=== PATIENT | female | born 1940 | race Caucasian/White ===

== ENCOUNTER 2021-01-28 12:29 | Emergency (ER) | payer MEDICARE, SELFPAY ==
--- NOTE | 2021-01-28 12:30 | RAD_ITS ---
STUDY: X-RAY CHEST REASON FOR EXAM: Female, 80 years old. SYNCOPE TECHNIQUE: Single AP portable view of the chest. COMPARISON: None. FINDINGS: EKG electrodes are seen. The lungs are clear and expanded. There is no demonstrated pleural abnormality. There is calcification of the mitral valve annulus. Normal mediastinum and carlos. Normal visualized pulmonary arteries. There is atherosclerotic calcification of the aortic arch with tortuosity. There are diffuse degenerative changes of the visualized thoracic spine. Normal visualized ribs, clavicles, and shoulders. There is no demonstrated abnormality of the visualized soft tissue structures of the upper abdomen. RAD/Chest 1 View (Portable) IMPRESSION: No acute abnormality is seen. Electronically Signed: Rafy Garcia MD at 13:32 EDT , Service support ,
--- NOTE | 2021-01-28 12:30 | CT_ITS ---
STUDY: CT BRAIN WITHOUT CONTRAST REASON FOR EXAM: Unknown, 80 years old. ALT LOC RADIATION DOSAGE (If Supplied By Facility): CTDIvol = ( 44.99 ) mGy, DLP = ( 829.85 ) mGycm TECHNIQUE: Transaxial CT imaging of the brain was performed without administration of intravenous contrast material. Individualized dose optimization techniques were used for this CT. COMPARISON: No relevant priors. FINDINGS: Normal soft tissue structures. Normal calvarium. There is mild cerebral atrophy with widening of the extra-axial spaces and ventricular dilatation. Normal white matter tracts of the cerebral hemispheres. Normal basal ganglia and thalami. Normal brainstem. Normal cerebellum. There is no intracranial hemorrhage. There are no findings of an acute ischemic infarction. Atherosclerotic calcification of the cavernous portions of the internal carotid arteries bilaterally. Normal visualized paranasal sinuses. CT/Brain/Head without Contrast IMPRESSION: Chronic involutional changes of the brain. Electronically Signed: Rafy Garcia MD at 13:08 EDT , Service support ,
--- NOTE | 2021-01-28 12:30 | CT_ITS ---
STUDY: CT CERVICAL SPINE WITHOUT CONTRAST REASON FOR EXAM: Unknown, 80 years old. TRAUMA RADIATION DOSAGE (If Supplied By Facility): CTDIvol = ( 21.56 ) mGy, DLP = ( 435.45 ) mGycm TECHNIQUE: High resolution transaxial imaging was performed without contrast material. Sagittal and coronal images were reconstructed. Limited examination due to the patient''s movement. Individualized dose optimization techniques were used for this CT. COMPARISON: None FINDINGS: Normal craniovertebral junction. There are degenerative changes of the anterior atlantoaxial articulation. Normal odontoid process. There is straightening of the normal cervical lordosis. Normal vertebral bodies and posterior osseous elements. C2-3: Normal endplates. Normal disc height and morphology. Normal central canal and intervertebral neuroforamina. C3-4: Marked degree of disc space narrowing and subchondral sclerosis. Uncovertebral arthrosis. Bilateral neural foraminal stenosis worse on the left side. Mild hypertrophy of the facet joints. C4-5: Mild degree of disc space narrowing. There is a 6.6 cm well-defined lucency in the posterior lateral aspect of the C5 vertebra. C5-6: Marked degree of disc space narrowing. Uncovertebral arthrosis and spondylosis with a moderate degree of bilateral neural foraminal stenosis worse on the right side. C6-7: Marked degree of disc space narrowing. Spondylosis. Uncovertebral arthrosis. Bilateral neural foraminal stenosis. C7-T1: Normal endplates. Normal disc height and morphology. Normal central canal and intervertebral neuroforamina. Atherosclerotic plaque formation at the origin of the carotid arteries bilaterally. CT/Spine Cervical without Contras IMPRESSION: Multilevel degenerative changes, as described above. Multilevel bilateral neural foraminal stenosis. Electronically Signed: Rafy Garcia MD at 13:07 EDT , Service support ,
[2021-01-28 12:38] LABS: Basophil# 0.07 X10^3/uL; Basophil% 0.8 % (0-1); Eosinophil# 0.06 X10^3/uL; Eosinophils% 0.7 % (0-5); Hematocrit 36.9 % (37-47); Hemoglobin 12.1 g/dL (12.0-15.0); Lymphocyte % 31.9 % (19-41); Mean Corp Hgb Conc 32.8 g/dL (32-36); Mean Corpuscular Hgb 28.5 pg (27.0-32.0); Mean Corpuscular Volume 86.8 fL (81-99); Mean Platelet Vol. 10.4 fl (6.2-12.0); Monocyte# 0.77 X10^3/uL; Monocyte% 8.8 % (0-10); NRBC Flagged by Analyzer 0 % (0-5); Neutrophil # 5.03 X10^3/uL (2.7-7.7); Neutrophil % 57.2 % (47-70); Platelet Count 286 K/mm3 (150-450); RBC Distribution Width CV 13.5 % (11.6-14.6); RBC Distribution Width SD 42.7 fl (35.1-43.9); Red Blood Count 4.25 M/mm3 (4.2-5.4); White Blood Count 8.8 K/mm3 (4.4-11.0)
--- NOTE | 2021-01-28 12:39 | ED.RN ---
PT. ARRIVES VIA EMS, DR. AGUERO TO SEE AT DOOR. PT. SENT TO CT. PER DR. AGUERO NO STROKE ALERT AT THIS TIME.
[2021-01-28 12:41] VITALS: BP 158/84; PULSE 68; RESP 20; TEMP 36; O2SAT 100; BMI 23.8
--- NOTE | 2021-01-28 12:45 | EDS_ITS ---
HPI History of Present Illness Chief Complaint: Alt LOC Informant: EMS Narrative Narrative: 80-year-old female brought in by EMS following a fall with altered mental status. Reportedly the patient is from [place] and is in town shopping with friends. She went to the bathroom and did not come out for a while and was found down on the ground by bystanders. EMS notes a contusion to her forehead. They note that she is confused and is repeating herself. [facility] Medical History (Updated 01/28/21 @ 14:[address] Kamlesh Morgan DO) Diabetes mellitus Home Medications aspirin [Baby Aspirin] 81 mg PO DAILY 01/28/21 [History Last Taken Unknown] cholecalciferol (vitamin D3) [Vitamin D3] 50 mcg PO DAILY 01/28/21 [History Last Taken Unknown] levothyroxine 125 mcg PO DAILY 01/28/21 [History Last Taken Unknown] lisinopril 2.5 mg PO DAILY 01/28/21 [History Last Taken Unknown] omega-3 fatty acids [[place] 3] 1,000 mg PO DAILY 01/28/21 [History Last Taken Unknown] pantoprazole 40 mg PO DAILY 01/28/21 [History Last Taken Unknown] simvastatin 40 mg PO DAILY 01/28/21 [History Last Taken Unknown] sitagliptin-metformin [Janumet XR] 1 tab PO DAILY 01/28/21 [History Last Taken Unknown] Allergy/AdvReac Type Severity Reaction Status Date / Time No Known Allergies Allergy Verified 01/28/21 12:53 Social History (Updated 01/28/21 @ 12:[address] Kamlesh Morgan DO) current gender identity: female Smoking Status: Never smoker substance use type: does not use ROS ROS ED Review of Systems ROS Unobtainable: due to mental status EXAM Physical Exam Const Vital Signs: 01/28/21 12:41 01/28/21 13:39 01/28/21 14:05 Temperature 96.8 F L Temperature Source Temporal Pulse Rate 68 70 Respiratory Rate 20 H 18 18 Blood Pressure 158/84 H 117/89 H 149/72 H Blood Pressure Mean 108 98 97 Pulse Ox 100 98 96 Oxygen Delivery Method Room Air Room Air Room Air Positive well nourished and well developed General Appearance ED: well developed HEENT Reports normocephalic, head/scalp atraumatic, TM's clear and moist mucous membranes HEENT Narrative: Forehead hematoma trauma Tympanic Membrane ED: Yes TM's clear Eyes PERRL and EOMs intact bilaterally Neck no lymphadenopathy, supple and no JVD Resp normal respiratory effort and clear to auscultation bilaterally Cardio regular rate, regular rhythm and no murmurs GI normal to inspection, nondistended, normoactive bowel sounds and non-tender Palpation: soft Back/Spine no CVA tenderness and normal ROM Extremity normal to inspection General Extremety ED: Negative for edema General Extremity: Negative for edema Neuro CN's II-XII intact bilaterally Neuro Narrative: Patient is repeating questions. Sensorium / Orientation: alert Motor Exam: strength 5/5 throughout Psych mental status grossly normal Mood & Affect: Negative for depressed or tearful Skin no rashes or lesions noted and no wounds MDM MDM MDM Narrative Medical decision making narrative: CT the brain and cervical spine showed no acute hemorrhage or fracture. Basic blood work was negative except for creatinine 1.34. Glucose was noted to be 172. Mental status has significantly improved. Patient notes that prior to going to the bathroom she got a very bad cramp in her lower abdomen. She notes a history of IBS. She states that she remembers waking up on the floor with sweat. She denies any chest pain shortness of breath. Patient was given food here. Repeat troponin was normal. I think the patient underwent a vasovagal syncope struck her head on the ground which resulted in a concussion. Patient noted that her urine seems bloody now. It is red-tinged at there are no clots. There is 25-50 white cells no bacteria Lab Data Attestation: I reviewed the patient's lab results. Labs: Laboratory Results - last 24 hr 01/28/21 01/28/21 01/28/21 12:30 12:30 12:46 WBC 8.8 RBC 4.25 Hgb 12.1 Hct 36.9 L MCV 86.8 MCH 28.5 MCHC 32.8 RDW Std Deviation 42.7 RDW Coeff of Merry 13.5 Plt Count 286 MPV 10.4 Immature Gran % (Auto) 0.600 Neut % (Auto) 57.2 Lymph % (Auto) 31.9 Davison % (Auto) 8.8 Eos % (Auto) 0.7 Baso % (Auto) 0.8 Absolute Neuts (auto) 5.0 Absolute Lymphs (auto) 2.80 Nucleated RBC % 0 PT 12.6 INR 1.0 APTT 27.1 Sodium 138 Potassium 4.1 Chloride 99 Carbon Dioxide 25.0 Anion Gap 14 BUN 16 Creatinine 1.34 H Estim Creat Clear Calc 28.62 Est GFR (MDRD) Af Amer 49 L Est GFR (MDRD) Non-Af 41 L BUN/Creatinine Ratio 11.9 Glucose 172 H Calcium 10.0 Total Bilirubin 0.30 AST 18 ALT 20 Alkaline Phosphatase 51 Troponin I High Sens 6 Total Protein 7.3 Albumin 3.8 Globulin 3.5 Albumin/Globulin Ratio 1.1 Urine Color Urine Clarity Urine pH Ur Specific [place] Urine Protein Urine Glucose (UA) Urine Ketones Urine Occult Blood Urine Nitrite Urine Bilirubin Urine Urobilinogen Ur Leukocyte Esterase Urine RBC Urine WBC Ur Squamous Epith Cells Urine Bacteria Hyaline Casts Urine Mucus 01/28/21 01/28/21 13:33 14:28 WBC RBC Hgb Hct MCV MCH MCHC RDW Std Deviation RDW Coeff of Merry Plt Count MPV Immature Gran % (Auto) Neut % (Auto) Lymph % (Auto) Davison % (Auto) Eos % (Auto) Baso % (Auto) Absolute Neuts (auto) Absolute Lymphs (auto) Nucleated RBC % PT INR APTT Sodium Potassium Chloride Carbon Dioxide Anion Gap BUN Creatinine Estim Creat Clear Calc Est GFR (MDRD) Af Amer Est GFR (MDRD) Non-Af BUN/Creatinine Ratio Glucose Calcium Total Bilirubin AST ALT Alkaline Phosphatase Troponin I High Sens 6 Total Protein Albumin Globulin Albumin/Globulin Ratio Urine Color Red Urine Clarity Sl. Cloudy Urine pH 6.5 Ur Specific [place] 1.010 Urine Protein 30 H Urine Glucose (UA) Normal Urine Ketones 5 H Urine Occult Blood Negative Urine Nitrite Positive H Urine Bilirubin Negative Urine Urobilinogen 1 H Ur Leukocyte Esterase 500 H Urine RBC 0 SEEN Urine WBC 25-50 SEEN Ur Squamous Epith Cells 0-5 SEEN Urine Bacteria 0 SEEN Hyaline Casts 0-5 SEEN Urine Mucus 0 SEEN EKG Initial EKG: Attestation: I personally reviewed and interpreted this EKG as follows: Comments: Normal sinus rhythm with a ventricular rate of 73 bpm. Right bundle branch block and left anterior fascicular block noted. Discharge Plan Triage Chief Complaint: Alt LOC ED Provider: Kamlesh Morgan Dx/Rx/DC Orders Clinical Impression: Vasovagal syncope, Concussion Instructions: ED Head Injury (Adult), ED Fainting, Vagal Reaction Prescriptions: No Action simvastatin 40 mg Tablet 40 mg PO DAILY RF: 0 pantoprazole 40 mg Tablet,Delayed Release (Dr/Ec) 40 mg PO DAILY RF: 0 aspirin [Baby Aspirin] 81 mg Tablet,Chewable 81 mg PO DAILY RF: 0 lisinopril 2.5 mg Tablet 2.5 mg PO DAILY RF: 0 [place] 3 Capsule 1,000 mg PO DAILY RF: 0 cholecalciferol (vitamin D3) [Vitamin D3] 50 mcg (2,000 unit) Capsule 50 mcg PO DAILY RF: 0 levothyroxine 125 mcg Capsule 125 mcg PO DAILY RF: 0 Janumet XR 50-500 mg Tablet, Er Multiphase 24 Hr 1 tab PO DAILY RF: 0 Primary Care Provider: Care Physician,No Primary Referrals: Care Physician,No Primary [Primary Care Provider] - Activity Restrictions/Additional Instructions: Please follow-up with your primary care physician in 1 week. Disposition Disposition: Home, Self Care
[2021-01-28 12:55] LABS: ALB/GLOB Ratio 1.1 RATIO (0.9-2.4); AST(SGOT) 18 U/L (15-37); Alanine Aminotransfer ALT/SGPT 20 U/L (13-56); Albumin, Serum 3.8 g/dL (3.2-5.0); Alkaline Phosphatase 51 U/L (45-117); Anion Gap 14 (5-15); BUN 16 mg/dL (7-18); BUN/Creat Ratio 11.9 RATIO (10-20); Chloride 99 mmol/L (98-107); Creatinine, Serum 1.34 mg/dL (0.55-1.02); EST Glomerular Filtration Rate 41 mL/min (>60); Est Glom Filt Rate - Afr Amer 49 mL/min (>60); Estimated Creatinine Clearance 28.62 ml/min; Globulin 3.5 g/dL (2.2-4.2); Glucose 172 mg/dL (74-106); Potassium 4.1 mmol/L (3.5-5.1); Protein, Total 7.3 g/dL (6.4-8.2); Sodium Level 138 mmol/L (136-145); Troponin-I HS 6 pg/mL (3.0-54.0)
[2021-01-28 13:04] LABS: Prothrombin Time (Protime)PT. 12.6 SECONDS (11.7-14.9)
[2021-01-28 13:05] LABS: Partial Thromboplast Time 27.1 Seconds (24.1-36.2)
[2021-01-28 13:39] VITALS: BP 117/89; RESP 18; O2SAT 98
[2021-01-28 13:55] LABS: Bacteria 0 SEEN /hpf (None Seen); Mucous, Urine 0 SEEN /hpf (<or=2+); Red Blood Cells-Urine 0 SEEN /hpf (0-5)
[2021-01-28 14:05] VITALS: BP 149/72; PULSE 70; RESP 18; O2SAT 96
[2021-01-28 14:06] LABS: Color, Urine Red (Yellow); Glucose, Dipstick Normal (Normal); Ketone-Dipstick 5 mg/dl (Negative); Leukocyte Esterase-Dipstick 500 /ul (Negative); Nitrite-Dipstick Positive (Negative); Occult Blood-Urine Negative /ul (Negative); Protein-Dipstick 30 mg/dl (Negative); Urine Bilirubin Dipstick Negative (Negative); Urine Clarity Sl. Cloudy (Clear); Urine Urobilinogen 1 mg/dl (Normal); Urine pH 6.5 (5.0 - 8.0)
[2021-01-28 14:21] LABS: Hyaline Cast 0-5 SEEN /lpf (0-5); Squamous Epithelial Cells - UA 0-5 SEEN /hpf (5-10); White Blood Cells 25-50 SEEN /hpf (0-5)
--- NOTE | 2021-01-28 14:22 | ED.RN ---
DR. AGUERO TO ROOM TO VISIT. PT PASSES DYSPHAGIA SCREEN. SANDWICH GIVEN
[2021-01-28 14:50] LABS: Troponin-I HS 6 pg/mL (3.0-54.0)
[2021-01-28 15:09] VITALS: BP 159/71; PULSE 79; RESP 16; O2SAT 97
== END 2021-01-28 15:10 | disposition home or self-care (01) ==
PROVIDERS: Emergency Provider Emergency Medicine
DX: S06.0X9A Concussion with loss of consciousness of unspecified duration, initial encounter (principal); R55 Syncope and collapse; E11.9 Type 2 diabetes mellitus without complications; Z79.84 Long term (current) use of oral hypoglycemic drugs; W18.30XA Fall on same level, unspecified, initial encounter; Y93.89 Activity, other specified; Y92.512 Supermarket, store or market as the place of occurrence of the external cause; Y99.8 Other external cause status
CPT/HCPCS: 36415; 70450; 71045; 72125; 80053; 81001; 84484; 85025; 85610; 85730; 93005; 99285; A4216